=== PATIENT | male | born 1970 | race Hispanic/Latino ===

== ENCOUNTER → 2018-11-25 | Outpatient (CLI) | payer BC ==
[~2018-11-25] MED LIST: IOPAMIDOL 370 MG/ML 200 ML INFUS..BTL INJ ONE; SODIUM CHLORIDE 0.9% 50ML 50 ML ONE
--- NOTE | 2018-11-25 09:09 | Diagnostic Imaging Report ---
EXAM: CT Abdomen and Pelvis WITH intravenous contrast INDICATION: Anemia, weight loss COMPARISON: None. TECHNIQUE: Abdomen and pelvis were scanned utilizing a multidetector helical scanner from the lung base to the pubic symphysis after administration of IV contrast. Coronal and sagittal reformations were obtained. Routine protocol was performed. Scan was performed during portal venous phase. IV CONTRAST: 100mL of Isovue 370 ORAL CONTRAST: Water RADIATION DOSE: Total DLP: 678.39 mGy*cm Dose modulation, iterative reconstruction, and/or weight based adjustment of the mA/kV was utilized to reduce the radiation dose to as low as reasonably achievable. FINDINGS: LOWER THORAX: Normal. HEPATOBILIARY: No focal hepatic lesions. No biliary ductal dilatation. The gallbladder appears unremarkable. SPLEEN: No splenomegaly. PANCREAS: No focal masses or ductal dilatation. ADRENALS: No adrenal nodules. KIDNEYS/URETERS: No hydronephrosis, stones, or solid mass lesions. PELVIC ORGANS/BLADDER: Unremarkable. PERITONEUM / RETROPERITONEUM: No free air or fluid. LYMPH NODES: No lymphadenopathy. VESSELS: Unremarkable. GI TRACT: No distention or wall thickening. There are sigmoid diverticula without evidence of acute diverticulitis. BONES AND SOFT TISSUES: No acute osseous abnormalities. IMPRESSION: No acute findings in the abdomen or pelvis. Signed by: Martinez Kirk MD on 11/25/2018 9:06 AM
--- NOTE | 2018-11-25 09:48 | Diagnostic Imaging Report ---
Right knee MRI without contrast. History: Knee pain. Internal drainage. Swelling. Decreased range of motion. Comparison: None. Technique: Multiplanar multi-sequence MRI of the knee without contrast. Findings: Medial compartment: Complex tear involving the posterior horn and body segment of the medial meniscus best seen on sagittal image 15. Regions of near full-thickness articular cartilage loss in the medial compartment with mild underlying bone marrow edema. Peripheral marginal osteophytes. The medial collateral ligament complex is intact. Lateral compartment: Mild degeneration of the lateral meniscus without tear. Articular cartilage fraying and deep fissuring at the anterior lateral tibial plateau with mild underlying subchondral cystic change. Peripheral marginal osteophytes. Intercondylar notch: The ACL and PCL are intact. Patellofemoral compartment: Articular cartilage fraying and deep fissuring in the patellofemoral compartment with mild underlying bone marrow edema. Extensor mechanism: The quadriceps and patellar tendons are normal. Other findings: There is a large joint effusion and synovitis. There is no acute fracture, subluxation or avascular necrosis. 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 Less severe degenerative arthrosis in the patellofemoral and lateral compartments. Large joint effusion and synovitis. Signed by: Dr. Ovidio Traore M.D. on 11/25/2018 9:44 AM
== END ==
LOC: MRI 07:25
PROVIDERS: ATTEND Specialist
DX: M23.91 Unspecified internal derangement of right knee (principal); D50.9 Iron deficiency anemia, unspecified; R63.4 Abnormal weight loss
CPT/HCPCS: 73721; 74177; Q9967

== ENCOUNTER → 2019-02-21 | Day surgery (SDC) | payer BC ==
[~2019-02-21] MED LIST changes: +CEFAZOLIN SOD 1 GM/NS 50ML 50 ML IV ONE; +DEXAMETHASONE SOD PHOS INJ 4 MG/ML VIAL ONE; +FENOFIBRATE145 MG PO; +FENTANYL CITRATE/PF 100MCG/2 ML INJ ONE; -IOPAMIDOL 370 MG/ML 200 ML INFUS..BTL INJ ONE; +KETOROLAC TROMETHAMINE 30 MG/ML VIAL ONE; +LIDOCAINE HCL 2% LOCAL INJ 5 ML SDV VIAL INJ ONE; +MIDAZOLAM HCL 2 MG/2 ML VIAL ONE; +OMEGA-31000 MG PO; +OMEPRAZOLE40 MG PO; +ONDANSETRON HCL INJ 2MG/ML 2ML 2 MG/ML VIAL ONE; +PROPOFOL IV EMULSION 10 MG/ML 20 ML VIAL ONE; +SEVOFLURANE INHAL SOLN 250 ML PEN BTL ONE; -SODIUM CHLORIDE 0.9% 50ML 50 ML ONE
--- OUTSIDE RECORDS SUMMARY | 2019-02-21 05:20 | XMS REPORT ---
[facility] Phone Unavailable Care Team Providers Care [employer] Clerk Name Role Phone ADITI CROOK Unavailable Unavailable Problems This patient has no known problems. Allergies, Adverse Reactions, Alerts This patient has no known allergies or adverse reactions. Medications This patient has no known medications. Results Test Description Test Time Test Comments Text Results Atomic Results Result Comments MRI RIGHT KNEE WO 2018-11-25 09:42:00 [place] [address] Patient Name: ROD AVILES MR #: [id number] : 1970 Age/Sex: 48/M Req #: [id number] [facility] Physician: Ordered by: ADITI CROOK MD Report #: [id number] Location: MRI Room/Bed: Procedure: [id number] MRI/MRI RIGHT KNEE WO Exam Date: Exam Time: REPORT STATUS: Signed Right knee MRI without contrast. History: Knee pain. Internal tyson inage. Swelling. Decreased range of motion. Comparison: None. Technique: Multiplanar multi-sequence MRI of the knee without contrast. Findings: Medial compartment: Complex tear involving the posterior horn and body segment of the medial meniscus best seen on sagittal image 15. Regions of near full-thickness articular cartilage loss in the medial compartment with mild underlying bone marrow edema. Peripheral marginal osteophytes. The medial collateral ligament complex is intact. Lateral compartment: Mild degeneration of the lateral meniscus without tear. Articular cartilage fraying and deep fissuring at the anterior lateral tibial plateau with mild underlying subchondral cystic change. Peripheral marginal osteophytes. Intercondylar notch: The ACL and PCL are intact. Patellofemoral compartment: Articular cartilage fraying and deep fissuring in the patellofemoral compartment with mild underlying bone marrow edema. Extensor mechanism: The quadriceps and patellar tendons are normal. Other findings: There is a large joint effusion and synovitis. There is no acute fracture, subluxation or avascular necrosis. 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 Less severe degenerative arthrosis in the patellofemoral and lateral compartments. Large joint effusion and synovitis. Signed by: Dr. Ovidio Traore M.D. on 11/25/2018 9:44 AM Dictated By: OVIDIO TRAORE MD, MD 3 Transcribed By: EUGENIE on 11/25/18943 COPY TO: ADITI CROOK MD CT ABDOMEN/PELVIS W 2018-11-25 09:02:00 [place] [address] Patient Name: ROD AVILES MR #: [id number] : 1970 Age/Sex: 48/M Req #: [id number] Adm Physician: Ordered by: ADITI CROOK MD Report #: [id number] Location: MRI Room/Bed: Procedure: [id number] CT/CT ABDOMEN/PELVIS W Exam Date: 11/25/18 Exam Time: 0810 REPORT STATUS: Signed EXAM: CT Abdomen and Pelvis WITH intravenous contrast INDICATION: Anemia, weight loss COMPARISON: None. TECHNIQUE: Abdomen and pelvis were scanned utilizing a multidetector helical scanner from the lung base to the pubic symphysis after administration of IV contrast. Coronal and sagittal reformations were obtained. Routine protocol was performed. Scan was performed during portal venous phase. IV CONTRAST: 100mL of Isovue 370 ORAL CONTRAST: Water RADIATION DOSE: Total DLP: 678.39 mGy*cm Dose modulation, iterative reconstruction, and/or weight based adjustment of the mA/kV was utilized to reduce the radiation dose to as low as reasonably achievable. FINDINGS: LOWER THORAX: Normal. HEPATOBILIARY: No focal hepatic lesions. No biliary ductal dilatation. The gallbladder appears unremarkable. SPLEEN: No splenomegaly. PANCREAS: No focal masses or ductal dilatation. ADRENALS: No adrenal nodules. KIDNEYS/URETERS: No hydronephrosis, stones, or solid mass lesions. PELVIC ORGANS/BLADDER: Unremarkable. PERITONEUM / RETROPERITONEUM: No free air or fluid. LYMPH NODES: No lymphadenopathy. VESSELS: Unremarkable. GI TRACT: No distention or wall thickening. There are sigmoid diverticula without evidence of acute diverticulitis. BONES AND SOFT TISSUES: No acute osseous abnormalities. IMPRESSION: No acute findings in the abdomen or pelvis. Signed by: Martinez Mota MD on 11/25/2018 9:06 AM Dictated By: MARTINEZ MOTA MD 5 Transcribed By: EUGENIE on 11/25/18905 COPY TO: ADITI CROOK MD
[2019-02-21 09:10] VITALS: BP 114/65
--- NOTE | 2019-02-21 12:23 | Operative Report ---
DATE OF PROCEDURE: 02/21/2019 SURGEON: Brooks Cody MD PREDATORY ANIMAL TRAPPER: Murray Giordano, certified PA. PREOPERATIVE DIAGNOSIS: Right knee medial meniscal tear. 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 PROCEDURES: Right knee arthroscopy, partial medial meniscectomy, chondroplasty of the trochlear groove. INDICATIONS: The patient is a 49-year-old gentleman, who has clinic signs and symptoms consistent with a meniscal tear in his right knee. He has failed conservative management and would like to proceed with arthroscopic intervention. The risks and benefits have been explained. The likelihood of some persistent arthritic pain has been discussed. He states he understands and wishes to proceed. PROCEDURE IN DETAIL: The patient was brought to the operating room and placed under general anesthetic. His right lower extremity was prepped and draped in a sterile manner. A preoperative time-out was performed. The extremity had been exsanguinated and a proximal tourniquet was inflated to 300 mmHg. Standard arthroscopy portals were established. A large joint effusion was decompressed. The knee was insufflated with sterile saline and systematically inspected. He was noted to have some [id number] synovitis. 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 There was a developing medial femoral condylar osteophyte. The anterior horn of the medial meniscus was unremarkable. There was a complex tear of the posterior horn. This was probed and photographed. This was debrided back to a stable margin using a combination of biting forceps and a mechanical shaver. The cruciate ligaments were inspected and probed. They were unremarkable. The lateral compartment was then inspected and probed, it also was unremarkable. Attention was returned to the trochlear groove. On stable margins of the full-thickness cartilage loss were debrided back to stable rims. The knee was further irrigated. All loose cartilaginous fragments were cleared from the joint. The arthroscopic instruments were removed. The portal incisions were closed with nylon stitches. A sterile bandage was applied. The patient was extubated and transported to the recovery room in stable condition. There was no blood loss and all needle and sponge counts were correct. Brooks Cody MD DR/TEE /[id number]
== END | disposition home or self-care (01) ==
LOC: OR 05:17
PROVIDERS: ATTEND Specialist
DX: S83.231A Complex tear of medial meniscus, current injury, right knee, initial encounter (principal); M17.11 Unilateral primary osteoarthritis, right knee; M65.861 Other synovitis and tenosynovitis, right lower leg; M22.41 Chondromalacia patellae, right knee; X58.XXXA Exposure to other specified factors, initial encounter; Z01.810 Encounter for preprocedural cardiovascular examination; Z68.31 Body mass index [BMI] 31.0-31.9, adult
CPT/HCPCS: 29881; 93005; J0690; J1100; J1885; J2001; J2250; J2405; J2704; J3010